=== PATIENT | male | born 1955 | race Two or more races ===

== ENCOUNTER 2020-06-16 11:31 | Emergency (ER) | payer OTHER ==
[~2020-06-16] VITALS: Ht 170.2 cm; Wt 52.2 kg
[2020-06-16 11:45] VITALS: BP 110/70
--- NOTE | 2020-06-16 12:30 | NUR ---
ED Nurse Note: Pt was brought in by ambulance from home d/t generalized weakness for a couple of weeks. 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 Pt is AOx2, calm and cooperative to care, VSS, breathing even and unlabored. Placed on bed and gown.
--- NOTE | 2020-06-16 12:54 | NUR ---
ED Nurse Note: urine, blood and rapid covid collected, sent to lab.
[2020-06-16 13:23] LABS: APPEARANCE,URINE CLEAR; BILIRUBIN, URINE NEGATIVE (NEGATIVE); COLOR,URINE PALE YELLOW; GLUCOSE, URINE (UA) NEGATIVE (NEGATIVE); KETONES,URINE NEGATIVE (NEGATIVE); LEUKOCYTE ESTERASE ,URINE NEGATIVE (NEGATIVE); NITRITE,URINE NEGATIVE (NEGATIVE); PH,URINE 6 (4.5-8.0); PROTEIN,URINE NEGATIVE (NEGATIVE); UROBILINOGEN,URINE NORMAL MG/DL (0.0-1.0)
[2020-06-16 13:25] LABS: BASOPHILS % (AUTO) 0.9 % (0.0-2.0); EOSINOPHILS % (AUTO) 0.8 % (0.0-3.0); HEMATOCRIT 42.9 % (42.0-52.0); HEMOGLOBIN 14.3 G/DL (14.2-18.0); LYMPHOCYTES % (AUTO) 10.8 % (20.0-45.0); MEAN CORPUSCULAR VOLUME 95 FL (80-99); MONOCYTES % (AUTO) 4.2 % (1.0-10.0); NEUTROPHILS % (AUTO) 83.2 % (45.0-75.0); PLATELET COUNT 287 K/UL (150-450); RED BLOOD COUNT 4.53 M/UL (4.70-6.10); RED CELL DISTRIBUTION WIDTH 12.5 % (11.6-14.8); WHITE BLOOD COUNT 12.9 K/UL (4.8-10.8)
[2020-06-16 13:42] LABS: ANION GAP 6 mmol/L (5-15); BLOOD UREA NITROGEN 30 mg/dL (7-18); CALCIUM 8.8 MG/DL (8.5-10.1); CARBON DIOXIDE 27 MMOL/L (21-32); CHLORIDE 104 MMOL/L (98-107); CREATININE 1.1 MG/DL (0.55-1.30); POTASSIUM 4.3 MMOL/L (3.5-5.1); SODIUM 137 MMOL/L (136-145)
[2020-06-16 13:46] LABS: ALANINE AMINOTRANSFERASE 19 U/L (12-78); ALBUMIN 2.8 G/DL (3.4-5.0); ALBUMIN/GLOBULIN RATIO 0.7 (1.0-2.7); ALKALINE PHOSPHATASE 146 U/L (46-116); ASPARTATE AMINO TRANSFERASE 29 U/L (15-37); BILIRUBIN,TOTAL 0.8 MG/DL (0.2-1.0)
--- NOTE | 2020-06-16 14:23 | Emergency Room Report ---
History of Present Illness General Chief Complaint: Generalized Weakness Source: EMS (Kamron Rivas MD) Present Illness HPI 65-year-old male presents to ED for evaluation. Brought in by EMS from home. Presenting with generalized weakness and poor appetite for several days. States he is not eating. Denies chest pain or shortness of breath. Denies fevers or chills. Denies cough. No other aggravating relieving factors. Denies any other associated symptoms (Kamron Rivas MD) Allergies: Coded Allergies: No Known Allergies (Unverified , 06/16/20) COVID-19 Screening Contact w/high risk pt: No Experienced COVID-19 symptoms?: No COVID-19 Testing performed [employer]: No (Kamron Rivas MD) Patient History Past Medical History: none Past Surgical History: none Pertinent Family History: none Social History: Denies: smoking, alcohol use, drug use Immunizations: UTD Reviewed Nursing Documentation: PMH: Agreed; PSxH: Agreed (Kamron Rivas MD) Nursing Documentation-PMH Past Medical History: No Stated History (Kamron Rivas MD) Review of Systems All Other Systems: negative except mentioned in HPI (Kamron Rivas MD) Physical Exam Vital Signs Date Time Temp Pulse Resp B/P (MAP) Pulse Ox O2 Delivery O2 Flow Rate FiO2 06/16/20 11:24 97.3 60 18 110/70 (83) 96 Sp02 EP Interpretation: reviewed, normal General Appearance: no apparent distress, alert, GCS 15, non-toxic, cachetic Head: normocephalic, atraumatic Eyes: bilateral eye normal inspection, bilateral eye PERRL ENT: hearing grossly normal, normal pharynx, no angioedema, normal voice Neck: full range of motion, supple/symm/no masses Respiratory: chest non-tender, lungs clear, normal breath sounds, speaking full sentences Cardiovascular #1: regular rate, rhythm, no edema Cardiovascular #2: 2+ carotid (R), 2+ carotid (L), 2+ radial (R), 2+ radial (L), 2+ dorsalis pedis (R), 2+ dorsalis pedis (L) Gastrointestinal: normal bowel sounds, non tender, soft, non-distended, no guarding, no rebound Rectal: deferred Genitourinary: normal inspection, no CVA tenderness Musculoskeletal: back normal, normal range of motion, gait/station normal, non- tender Neurologic: alert, motor strength/tone normal, oriented x3, sensory intact, responsive, speech normal Psychiatric: judgement/insight normal, memory normal, mood/affect normal, no suicidal/homicidal ideation Reflexes: 3+ bicep (R), 3+ bicep (L), 3+ tricep (R), 3+ tricep (L), 3+ knee (R), 3+ knee (L) Skin: other - See nursing notes Lymphatic: no adenopathy (Kamron Rivas MD) Medical Decision Making Diagnostic Impression: Primary Impression: Episode of generalized weakness Additional Impression: FTT (failure to thrive) in adult ER Course Hospital Course 65-year-old male presenting to ED with generalized weakness, unable to care for herself Differential diagnoses include: Pneumonia, UTI, sepsis, dehydration, OH/unstable angina, failure to thrive Clinical course Patient placed on stretcher. On secured entrance monitor After initial history and physical, I ordered labs, IV fluids, EKG, chest x-ray, UA. Labs - no leukocytosis, hb/hct stable, electrolytes ok, trop negative EKG - NSR, no acute ischemic changes interpreted by me CXR - no acute process Case discussed with Dr Rasmussen and they agreed to admit patient to their service for further care and support I feel this is a highly complex case requiring extensive working including EKG/Rhythm strip, Xray/CT/US, Blood/urine lab work, repeat exams while in ED, and administration of strong opiates/narcotics for pain control, admission to hospital or close patient follow up. Diagnosis - failure to thrive, episode of generalized weakness Patient admitted to floor in serious condition Laboratory Tests Test 06/16/20 12:34 White Blood Count 12.9 K/UL (4.8-10.8) H Red Blood Count 4.53 M/UL (4.70-6.10) L Hemoglobin 14.3 G/DL (14.2-18.0) Hematocrit 42.9 % (42.0-52.0) Mean Corpuscular Volume 95 FL (80-99) Mean Corpuscular Hemoglobin 31.5 PG (27.0-31.0) H Mean Corpuscular Hemoglobin Concent 33.3 G/DL (32.0-36.0) Red Cell Distribution Width 12.5 % (11.6-14.8) Platelet Count 287 K/UL (150-450) Mean Platelet Volume 6.5 FL (6.5-10.1) Neutrophils (%) (Auto) 83.2 % (45.0-75.0) H Lymphocytes (%) (Auto) 10.8 % (20.0-45.0) L Monocytes (%) (Auto) 4.2 % (1.0-10.0) Eosinophils (%) (Auto) 0.8 % (0.0-3.0) Basophils (%) (Auto) 0.9 % (0.0-2.0) Urine Color Pale yellow Urine Appearance Clear Urine pH 6 (4.5-8.0) Urine Specific [place] 1.010 (1.005-1.035) Urine Protein Negative (NEGATIVE) Urine Glucose (UA) Negative (NEGATIVE) Urine Ketones Negative (NEGATIVE) Urine Blood 3+ (NEGATIVE) H Urine Nitrite Negative (NEGATIVE) Urine Bilirubin Negative (NEGATIVE) Urine Urobilinogen Normal MG/DL (0.0-1.0) Urine Leukocyte Esterase Negative (NEGATIVE) Urine RBC 5-10 /HPF (0 - 0) H Urine WBC 0 /HPF (0 - 0) Urine Squamous Epithelial Cells Occasional /LPF Urine Bacteria Occasional /HPF (NONE) Sodium Level 137 MMOL/L (136-145) Potassium Level 4.3 MMOL/L (3.5-5.1) Chloride Level 104 MMOL/L (98-107) Carbon Dioxide Level 27 MMOL/L (21-32) Anion Gap 6 mmol/L (5-15) Blood Urea Nitrogen 30 mg/dL (7-18) H Creatinine 1.1 MG/DL (0.55-1.30) Estimat Glomerular Filtration Rate > 60 mL/min (>60) Glucose Level 93 MG/DL (74-106) Calcium Level 8.8 MG/DL (8.5-10.1) Total Bilirubin 0.8 MG/DL (0.2-1.0) Aspartate Amino Transf (AST/SGOT) 29 U/L (15-37) Alanine Aminotransferase (ALT/SGPT) 19 U/L (12-78) Alkaline Phosphatase 146 U/L (46-116) H Troponin I 0.037 ng/mL (0.000-0.056) Total Protein 6.9 G/DL (6.4-8.2) Albumin 2.8 G/DL (3.4-5.0) L Globulin 4.1 g/dL Albumin/Globulin Ratio 0.7 (1.0-2.7) L Lipase 304 U/L (73-393) (Kamron Rivas MD) ER Course Please see above note. Plan is to transfer patient to [facility]. Discussed with Dr. Dailey. Stable for transfer. (Canelo Gillette MD) EKG Diagnostic Results Troponin ordered: Yes Rate: normal Rhythm: NSR ST Segments: no acute changes ASA given to the pt in ED: No (Kamron Rivas MD) Rhythm Strip Diag. Results EP Interpretation: yes Rhythm: NSR, no PVC's, no ectopy (Kamron Rivas MD) Chest X-Ray Diagnostic Results Chest X-Ray Diagnostic Results : Chest X-Ray Ordered: Yes # of Views/Limited/Complete: 1 View Indication: Other EP Interpretation: Yes Interpretation: no consolidation, no effusion, no pneumothorax, no acute cardiopulmonary disease Impression: No acute disease Electronically Signed by: Electronically signed by Kamron Rivas MD (Kamron Rivas MD) Last Vital Signs Date Time Temp Pulse Resp B/P (MAP) Pulse Ox O2 Delivery O2 Flow Rate FiO2 06/16/20 11:45 97.3 18 110/70 96 06/16/20 11:45 60 Status: improved (Kamron iRvas MD) Disposition: SHORT-TERM HOSP Condition: Serious Referrals: [facility],REFERRING (PCP) Kamron Rivas MD Jun 16, 2020 14:23 Canelo Gillette MD Jun 16, 2020 15:41
--- NOTE | 2020-06-16 15:31 | Diagnostic Imaging Report ---
Indication: Weakness, chest pain Technique: XRAY Chest 1v Comparison: None Findings: Borderline cardiomegaly. Mediastinal contours are sharp. Atherosclerotic calcifications noted in the aorta. No focal consolidation. No pleural effusion, pneumothorax or radiographic evidence of pulmonary edema. There are degenerative changes in the spine. No acute osseous abnormality. Impression: No radiographic evidence of acute cardiopulmonary disease.
[2020-06-16 16:16] VITALS: BP 127/67
--- NOTE | 2020-06-16 16:37 | NUR ---
ED Nurse Note: report given to demarco sandoval
[2020-06-16 16:39] VITALS: BP 123/66
== END 2020-06-16 16:39 | disposition short-term general hospital (02) ==
LOC: EDBD 11:31 → EMR 13:11
DX: R53.1 Weakness (principal); R62.7 Adult failure to thrive; Z68.1 Body mass index [BMI] 19.9 or less, adult
CPT/HCPCS: 36415; 71045; 80053; 81003; 83690; 84484; 85025; 93005; 96360; U0002; Z7502; 99285